=== PATIENT | female | born 1990 | race Caucasian/White ===

== ENCOUNTER → 2017-08-24 | Outpatient (CLI) | payer OTHER ==
[~2017-08-24] MED LIST: BIMA01SOL OD; BRIM1OPD OU; CLON0.5T PO; DIAM500C PO; DORZ2OPD OU; NUVAMIS2 IC; PILO1OPD OD; PROB1CAP12 PO; TIMO0.5S29 OU
[2017-08-24 19:22] LABS: MEAN CORPUSCULAR HEMOGLOBIN 30.4 pg (27.0-33.0); MEAN CORPUSCULAR HGB CONC 32.6 g/dl (32.0-36.5); MEAN CORPUSCULAR VOLUME 93.5 fl (80.0-96.0); PLATELET COUNT, AUTOMATED 205 10^3/uL (150-450); RED CELL DISTRIBUTION WIDTH 13.2 % (11.5-14.5)
[2017-08-24 19:26] LABS: ANION GAP 10 MEQ/L (8-16); BLOOD UREA NITROGEN 8 MG/DL (7-18); CARBON DIOXIDE LEVEL 20 MEQ/L (21-32); CHLORIDE LEVEL 111 MEQ/L (98-107); CREATININE FOR GFR 1.06 MG/DL (0.55-1.02); GLOMERULAR FILTRATION RATE > 60.0 (>60); POTASSIUM SERUM 3.3 MEQ/L (3.5-5.1); SODIUM LEVEL 141 MEQ/L (136-145)
== END ==
LOC: M WUC 15:56
PROVIDERS: ATTEND Ophthalmology
DX: H40.1133 Primary open-angle glaucoma, bilateral, severe stage (principal)

== ENCOUNTER 2017-08-31 07:04 | Day surgery (SDC) | payer OTHER ==
[~2017-08-31] VITALS: Ht 167.6 cm; Wt 58.1 kg
[~2017-08-31 07:04] MED LIST changes: +ACETAMINOPHEN 325 MG TAB PO PRN; +BSS with VANC/TOB/EPI for EYE CASES IR ONE; +LIDOCAINE 2% W/EPIN INJ 20ML **PRES FREE As Ordered ONE; +LIDOCAINE 3.5 % 1ML OPHTH TOPICAL GEL OU ONE; +OFLOXACIN 0.3 % (OCUFLOX) OPTH SOL 5ML XX ONE; +POVIDONE-IODINE 5% OPHTH PREP SOL 30ML As Ordered ONE; +PROPARACAINE 0.5% OPHTH SOL 15ML XX PRN; +TOBRADEX OPHTH OINT 3.5 GM As Ordered ONE
[2017-08-31] MEDS ORDERED: MIDAZOLAM INJ 2 MG/2 ML VIAL (J2250) As Ordered ONE (07:10)
[2017-08-31] MEDS ORDERED: fentaNYL 100 MCG/2 ML INJECTION (J3010) As Ordered ONE (07:13)
[2017-08-31] MEDS ORDERED: mitoMYcin 0.2 MG/VIAL KIT FOR OPHTHALMIC USE (J7315 PER 0.2MG) As Ordered ONE (07:15)
[2017-08-31] MEDS ORDERED: LIDOCAINE 3.5 % 1ML OPHTH TOPICAL GEL As Ordered ONE (07:20)
[2017-08-31 07:25] LABS: CONTROL LINE UCG INT CTR LINE PRESENT
[2017-08-31] MEDS ORDERED: AcetaZOLAMIDE 500 MG ER CAP PO ONE (07:30)
[2017-08-31] MEDS ORDERED: LR 1,000 ML IV ONE (07:30)
[2017-08-31] MEDS ORDERED: TRIMETHOBENZAMIDE 300 MG CAP PO PRN (07:30)
[2017-08-31] MEDS ORDERED: KETOROLAC 0.5% OPHTH SOLN XX ONE (07:30)
[2017-08-31] MEDS ORDERED: HEALON DUET (HEALON 10MG/ML 0.55ML & HEALON ENDOCOAT 30MG/ML 0.85ML) As Ordered ONE (07:59)
[2017-08-31 09:14] VITALS: BP 94/58
--- NOTE | 2017-08-31 10:44 | RO ---
DATE OF PROCEDURE: 08/31/2017 PREOPERATIVE DIAGNOSIS: Glaucoma right eye. POSTOPERATIVE DIAGNOSIS: Glaucoma right eye. PROCEDURE: Placement of the Ex-PRESS shunt with mitomycin in the right eye. SURGEON: Girish Krishna MD VP STRATEGY: None. ANESTHESIA: COMPLICATIONS: None. PROCEDURE IN DETAIL: The patient was brought to the operating room and laid in supine position. The eye was prepped and draped in a sterile fashion for ophthalmic surgery and a lid speculum was placed. A #7-0 Vicryl suture was used to rotate the eye inferiorly. Subconjunctival injection of 2% lidocaine with 1:100,000 epinephrine was then given in the superior subconjunctival space. This was followed by limbal based conjunctival peritomy, done over 4 o'clock hours and subconjunctival dissection carried out towards the limbus. Following hemostasis, mitomycin 0.2 mg/mL was placed on the scleral bed for 3 minutes followed by copious irrigation with balance salt solution (BSS). A rectangular 4 mm x 3 mm scleral flap, which was limbal based then created all the way to the blue line. The anterior chamber was entered with a 27 gauge needle underneath the flap. The lid was retracted and the ExPRESS shunt was placed through the same flap. The flap was draped over by the scleral flap and conjunctiva closed using #10-0 Vicryl sutures. No leaks were noted. At the end of the case, the #7-0 Vicryl suture was removed, TobraDex ointment was applied and patient was returned to the recovery room in stable condition.
== END 2017-08-31 09:50 | disposition home or self-care (01) ==
LOC: M SDC 07:04
PROVIDERS: ATTEND Ophthalmology
DX: H40.9 Unspecified glaucoma (principal); R51 Headache; E87.6 Hypokalemia; F41.9 Anxiety disorder, unspecified; F32.9 Major depressive disorder, single episode, unspecified; Z88.8 Allergy status to other drugs, medicaments and biological substances; Z79.899 Other long term (current) drug therapy; Z79.3 Long term (current) use of hormonal contraceptives; Z72.0 Tobacco use
CPT/HCPCS: 66183; 84703; C1783

== ENCOUNTER → 2017-09-07 | Day surgery (SDC) | payer OTHER ==
[~2017-09-07] VITALS: Ht 167.6 cm; Wt 60.3 kg
[~2017-09-07] MED LIST changes: -ACETAMINOPHEN 325 MG TAB PO PRN; -BSS with VANC/TOB/EPI for EYE CASES IR ONE; +HEALON DUET (HEALON 10MG/ML 0.55ML & HEALON ENDOCOAT 30MG/ML 0.85ML) As Ordered ONE; +LIDOCAINE 1% SDV 5 ML VIAL As Ordered ONE; -LIDOCAINE 2% W/EPIN INJ 20ML **PRES FREE As Ordered ONE; +MIDAZOLAM INJ 2 MG/2 ML VIAL (J2250) As Ordered ONE; +OFLOXACIN 0.3 % (OCUFLOX) OPTH SOL 5ML OS ONE; -OFLOXACIN 0.3 % (OCUFLOX) OPTH SOL 5ML XX ONE; +ONDANSETRON 4MG/2ML VIAL (J2405) IV PRN; +PRED20TA PO; -PROPARACAINE 0.5% OPHTH SOL 15ML XX PRN; +TOBR0.3S37 OP; +fentaNYL 100 MCG/2 ML INJECTION (J3010) As Ordered ONE
[2017-09-07 15:26] VITALS: BP 108/65
--- NOTE | 2017-09-09 17:59 | RO ---
DATE OF PROCEDURE: 09/07/2017 PREPROCEDURE DIAGNOSIS: Hypotony right eye. POSTPROCEDURE DIAGNOSIS: Hypotony right eye. PROCEDURE: Revision of Ex-PRESS shunt right eye. SURGEON: Dr. Radha Bradley EPIC CUPID SPECIALISTS: ANESTHESIA: Topical with sedation. DESCRIPTION OF PROCEDURE: Patient prepped and draped in the usual fashion. A lid speculum was placed between the lids, as the patient was directed to look downward, the #8-0 Vicryl suture in the conjunctiva was removed and the conjunctiva reflected down. The patient had a little bit of problem cooperating and a bridle suture was placed to retract the eye downward. There were no sutures in the scleral flap, so one #10-0 nylon suture was placed in each corner of the rectangular flap and one at the top in the center, so three #10-0 nylon sutures in total were used to tack down the flap. The flap was slightly retracted and was adherent to the conjunctivae but was easily freed. The conjunctiva was then closed using a running #8-0 Vicryl suture. The anterior chamber was reformed with balanced salt solution. TobraDex ointment, a patch shield was placed. The patient tolerated the procedure well, in recovery room in stable condition. Edited 09/09/2017 [facility]
== END | disposition home or self-care (01) ==
LOC: M SDC 11:28
PROVIDERS: ATTEND Ophthalmology
DX: H44.4 Hypotony of eye (principal); F17.210 Nicotine dependence, cigarettes, uncomplicated; Z79.899 Other long term (current) drug therapy

== ENCOUNTER → 2019-01-12 | Outpatient (REF) | payer OTHER ==
[~2019-01-12] MED LIST changes: -CLON0.5T PO; +CLON0.5T8 PO; -HEALON DUET (HEALON 10MG/ML 0.55ML & HEALON ENDOCOAT 30MG/ML 0.85ML) As Ordered ONE; -LIDOCAINE 1% SDV 5 ML VIAL As Ordered ONE; -LIDOCAINE 3.5 % 1ML OPHTH TOPICAL GEL OU ONE; -MIDAZOLAM INJ 2 MG/2 ML VIAL (J2250) As Ordered ONE; -OFLOXACIN 0.3 % (OCUFLOX) OPTH SOL 5ML OS ONE; -ONDANSETRON 4MG/2ML VIAL (J2405) IV PRN; -POVIDONE-IODINE 5% OPHTH PREP SOL 30ML As Ordered ONE; -TOBRADEX OPHTH OINT 3.5 GM As Ordered ONE; -fentaNYL 100 MCG/2 ML INJECTION (J3010) As Ordered ONE
[2019-01-12 13:44] LABS: INFLUENZA A AMPLIFICATION NEGATIVE (NEGATIVE); INFLUENZA B AMPLIFICATION NEGATIVE (NEGATIVE)
== END ==
LOC: M LAB REF 12:42
PROVIDERS: ATTEND Physician Assistant
DX: J11.1 Influenza due to unidentified influenza virus with other respiratory manifestations (principal)

== ENCOUNTER 2019-03-07 06:14 | Day surgery (SDC) | payer OTHER ==
[~2019-03-07] VITALS: Ht 167.6 cm; Wt 68.2 kg
[~2019-03-07 06:14] MED LIST changes: +ABIL1TAB11 PO; +ACET50CA PO; +ACETAMINOPHEN 325 MG TAB PO PRN; +BIMA01SOL OU; +BUPR15TA PO; +PROZ20CA11 PO; +TIMO0.5S39 OP; +TRUS1SOL OU
[2019-03-07] MEDS ORDERED: BALANCED SALT IRRIGATION SOLUTION 500ML BAG (FOR OR EYE MACHINE) As Ordered ONE (06:43)
[2019-03-07] MEDS ORDERED: POVIDONE-IODINE 5% OPHTH PREP SOL 30ML As Ordered ONE (06:43)
[2019-03-07] MEDS ORDERED: LIDOCAINE 1% SDV 5 ML VIAL As Ordered ONE (06:43)
[2019-03-07] MEDS ORDERED: HEALON DUET PRO(HEALON 10MG/ML 0.55ML & HEALON ENDOCOAT 30MG/ML 0.85ML) As Ordered ONE ×2 (06:44→07:11)
[2019-03-07] MEDS ORDERED: CEFUROXIME 1MG/0.1ML INTRACAMERAL INJ As Ordered ONE (06:44)
[2019-03-07 06:53] LABS: URINE PREG TEST NEGATIVE (NEGATIVE)
[2019-03-07] MEDS ORDERED: LIDOCAINE 3.5 % 1ML OPHTH TOPICAL GEL OU ONE (07:00)
[2019-03-07] MEDS ORDERED: PROPARACAINE 0.5% OPHTH SOL 15ML OS PRN (07:01)
[2019-03-07] MEDS ORDERED: mitoMYcin 0.2 MG/VIAL KIT FOR OPHTHALMIC USE (J7315 PER 0.2MG) As Ordered ONE (07:12)
[2019-03-07] MEDS ORDERED: MIDAZOLAM INJ 2 MG/2 ML VIAL (J2250) As Ordered ONE (07:15)
[2019-03-07] MEDS ORDERED: fentaNYL 100 MCG/2 ML INJECTION (J3010) As Ordered ONE (07:15)
[2019-03-07 08:25] VITALS: BP 103/74
[2019-03-07] MEDS ORDERED: TRIMETHOBENZAMIDE 300 MG CAP PO PRN (09:45)
[2019-03-07] MEDS ORDERED: KETOROLAC 0.5% OPHTH SOLN OS ONE (09:45)
--- NOTE | 2019-03-08 10:52 | RO ---
DATE OF PROCEDURE: 03/07/2019 PREOPERATIVE DIAGNOSIS: Open angle glaucoma, left eye. POSTOPERATIVE DIAGNOSIS: Open angle glaucoma, left eye. PROCEDURE PERFORMED: Implantation of Xen gel stent, left eye. SURGEON: Radha Bradley MD RENAL MEDICINE SPECIALIST: ANESTHESIA: Topical with sedation. DESCRIPTION OF PROCEDURE: The patient was prepped and draped in the usual fashion. A lid speculum was placed between the lids. The eye was examined. There was a previously EXPRESS shunt superiorly. The patient was instructed to look downward. 0.2% mitomycin C 0.1 mL was injected approximately 7 mm posterior to the limbus. A cotton tip was used to push the mitomycin around. A stab incision was made into the anterior chamber at approximately the 9 o'clock position. The eye was then grasped and a 2.4 mm keratome was used to make a clear corneal temporal incision at approximately the 5 o'clock position. The 1% nonpreserved lidocaine was instilled through the incision, through the sideport, and then viscoelastic was instilled through the sideport. Previously the conjunctiva was marked approximately 3 mm posterior to the limbus. The fixation device was placed through the sideport incision to hold the eye and then the Xen was introduced through the incision. The needle was placed just anterior to the trabecular meshwork until the needle was seen at approximately 3 mm position underneath the conjunctiva. The Xen implant was then released from its inserted and junior accountant bookkeeper removed. The implant was a little bit to anterior to the anterior chamber, and it was attempted to pull it back through the conjunctiva, however each time the pushed farther into the anterior chamber. Forceps was used to remove the Xen implant, a fresh implant was gotten and again through the pre-made incision the junior accountant bookkeeper was placed and the needle was visualized approximately 3 mm posterior to the limbus through the conjunctiva. This time the Xen implant was implanted and was in excellent position. The implant was grasped through the conjunctiva and swept back and forth. The Healon was washed out using balance salt solution (BSS). performed immediately after washing out the Healon. The wound was hydrated and cefuroxime was instilled. A shield was placed. The patient tolerated the procedure well and went to the recovery room in stable condition.
== END 2019-03-07 08:29 | disposition home or self-care (01) ==
LOC: M SDC 06:14
PROVIDERS: ATTEND Ophthalmology
DX: H40.1120 Primary open-angle glaucoma, left eye, stage unspecified (principal); F41.9 Anxiety disorder, unspecified; F32.9 Major depressive disorder, single episode, unspecified; Z79.899 Other long term (current) drug therapy
CPT/HCPCS: 66183; 84703; C1783; J2250; J3010; J7315

== ENCOUNTER 2019-12-05 01:22 | Emergency (ER) | payer OTHER ==
[~2019-12-05] VITALS: Ht 167.6 cm; Wt 72.7 kg
[~2019-12-05 01:22] MED LIST changes: -ACETAMINOPHEN 325 MG TAB PO PRN; +CLON0.5T2 PO; -CLON0.5T8 PO
[2019-12-05] MEDS ORDERED: CHARCOAL ACTIVATED LIQUID 25 GM/120 ML BTL PO ONE (02:15)
[2019-12-05] MEDS ORDERED: NS 1,000 ML IV ONE ×2 (02:15→04:45)
[2019-12-05 02:28] LABS: BASO # 0.1 10^3/uL (0.0-0.2); BASO % 0.6 % (0.0-1.0); EOS # 0.1 10^3/uL (0.0-0.5); EOS % 1.3 % (0.0-3.0); LYMPH # 3.6 10^3/uL (1.5-5.0); LYMPH % 34.2 % (24.0-44.0); MEAN CORPUSCULAR HEMOGLOBIN 30.5 pg (27.0-33.0); MEAN CORPUSCULAR HGB CONC 32.7 g/dl (32.0-36.5); MEAN CORPUSCULAR VOLUME 93.5 fl (80.0-96.0); MONO # 0.7 10^3/uL (0.0-0.8); MONO % 6.6 % (0.0-5.0); NEUTROPHILS % 57.1 % (36.0-66.0); PLATELET COUNT, AUTOMATED 251 10^3/uL (150-450); RED BLOOD COUNT 5.24 10^6/uL (4.00-5.40); WHITE BLOOD COUNT 10.6 10^3/uL (4.0-10.0)
[2019-12-05 02:43] LABS: OSMOLALITY SERUM 354 MOSM/KG (275-295)
[2019-12-05 02:44] LABS: HCG, SERUM QUALITATIVE NEGATIVE (NEGATIVE)
[2019-12-05 03:08] LABS: ACETAMINOPHEN LEVEL < 2.0 UG/ML (10.0-30.0); ALBUMIN 4.3 GM/DL (3.2-5.2); ALT/SGPT 20 U/L (12-78); BILIRUBIN,DIRECT < 0.1 MG/DL (0.0-0.2); BILIRUBIN,TOTAL 0.2 MG/DL (0.2-1.0); BLOOD UREA NITROGEN 6 MG/DL (7-18); CALCIUM LEVEL 8.5 MG/DL (8.5-10.1); CARBON DIOXIDE LEVEL 27 MEQ/L (21-32); CHLORIDE LEVEL 114 MEQ/L (98-107); CPK CREATINE PHOSPHOKINASE 81 U/L (26-192); GLOMERULAR FILTRATION RATE > 60.0 (>60); GLUCOSE, FASTING 95 MG/DL (70-100); POTASSIUM SERUM 4.2 MEQ/L (3.5-5.1); SALICYLATE LEVEL < 1.7 MG/DL (5.0-30.0); SODIUM LEVEL 148 MEQ/L (136-145)
[2019-12-05 06:38] LABS: AMPHETAMINES LEVEL URINE NEGATIVE (NEGATIVE); BARBITURATES URINE NEGATIVE (NEGATIVE); BENZODIAZEPINES URINE NEGATIVE (NEGATIVE); CANNABINOIDS URINE NEGATIVE (NEGATIVE); COCAINE METABOLITE URINE NEGATIVE (NEGATIVE); METHADONE URINE NEGATIVE (NEGATIVE); OPIATES URINE NEGATIVE (NEGATIVE); PHENCYCLIDINE URINE NEGATIVE (NEGATIVE)
[2019-12-05 07:13] VITALS: BP 104/54
--- NOTE | 2019-12-05 12:20 | ECGEPIP ---
[facility] - ED Test Date: 2019-12-05 Pat Name: OMAYRA GREEN Department: Room: - Gender: Female Flatbed Driver: : [id number] Requested By: REMINGTON Maria Order Number: [id number] Reading MD: Abdullahi Hardy Measurements Intervals [place] Rate: 87 P: 58 NC: 141 QRS: 81 QRSD: 81 T: 44 QT: 374 QTc: 451 Interpretive Statements SINUS RHYTHM INCOMPLETE RIGHT BUNDLE BRANCH BLOCK NONSPECIFIC T-WAVE ABNORMALITY NO PRIORS FOR COMPARISON Electronically Signed on 12-05-2019 12:20:20 EDT by Abdullahi Hardy
== END 2019-12-05 08:49 | disposition home or self-care (01) ==
LOC: M ED 01:22
DX: F10.229 Alcohol dependence with intoxication, unspecified (principal); Y90.1 Blood alcohol level of 20-39 mg/100 ml; F33.9 Major depressive disorder, recurrent, unspecified; F41.9 Anxiety disorder, unspecified; F90.9 Attention-deficit hyperactivity disorder, unspecified type; Z79.899 Other long term (current) drug therapy; F17.210 Nicotine dependence, cigarettes, uncomplicated
CPT/HCPCS: 80048; 80076; 80307; 82550; 83930; 84443; 84703; 85025; 93005; 93041; 94760; 96360; 96361; 99285; G0480

== ENCOUNTER → 2020-02-21 | Outpatient (CLI) | payer OTHER ==
--- NOTE | 2020-02-21 11:10 | REP ---
MRI LEFT KNEE: TECHNIQUE: Axial proton density fat saturation, sagittal proton density T2 STIR, water excitation, coronal proton density, proton density fat saturation. The menisci show no evidence of a tear. The cruciate and collateral ligaments are intact. The extensor mechanism is intact. The medial and lateral patellar retinacula are intact. No osteochondral defect is seen. However, there is a nondisplaced horizontal fracture of the proximal tibia predominantly in the medial tibial plateau. There is associated marrow edema. There is adjacent soft tissue edema. There is a small joint effusion. There is no popliteal cyst. IMPRESSION: No meniscal tear. Cruciate and collateral ligaments intact. Nondisplaced fracture proximal tibia, the epicenter in the medial tibial plateau. Small joint effusion. Electronically Signed by Beto Scott MD 02/21/2020 07:42 P
== END ==
LOC: M RAD 07:13
PROVIDERS: ATTEND Orthopaedic Surgery Sports Medicine
DX: S82.145A Nondisplaced bicondylar fracture of left tibia, initial encounter for closed fracture (principal); M25.461 Effusion, right knee; X58.XXXA Exposure to other specified factors, initial encounter; Y92.9 Unspecified place or not applicable

== ENCOUNTER → 2020-03-28 | Outpatient (CLI) | payer OTHER ==
[~2020-03-28] MED LIST changes: +ADDE20CA3 PO
== END ==
LOC: M LABSMTC 10:06
PROVIDERS: ATTEND Anesthesiology
DX: Z01.818 Encounter for other preprocedural examination (principal); Z11.59 Encounter for screening for other viral diseases
CPT/HCPCS: C9803; U0003

== ENCOUNTER 2020-03-31 08:02 | Day surgery (SDC) | payer OTHER ==
[~2020-03-31] VITALS: Ht 170.2 cm; Wt 73.5 kg
[~2020-03-31 08:02] MED LIST changes: +ACETYLCHOLINE OPHTH SOLN 1% 2ML (MIOCHOL-E) As Ordered ONE; +BALANCED SALT IRRIGATION SOLUTION 500ML BAG (FOR OR EYE MACHINE) As Ordered ONE; +CEFUROXIME 1MG/0.1ML INTRACAMERAL INJ As Ordered ONE; +LIDOCAINE 1% SDV 5ML VIAL As Ordered ONE; +LIDOCAINE 3.5 % 1ML OPHTH TOPICAL GEL OU ONE; +POVIDONE-IODINE 5% OPHTH PREP SOL 30ML As Ordered ONE; +mitoMYcin 0.2 MG/VIAL KIT FOR OPHTHALMIC USE (J7315 PER 0.2MG) As Ordered ONE
[2020-03-31] MEDS ORDERED: ONDANSETRON 4MG/2ML VIAL As Ordered ONE (09:28)
[2020-03-31] MEDS ORDERED: fentaNYL 100 MCG/2 ML INJECTION (J3010) As Ordered ONE (09:29)
[2020-03-31] MEDS ORDERED: MIDAZOLAM INJ 2MG/2ML VIAL (J2250 PER 1MG) As Ordered ONE (09:29)
[2020-03-31] MEDS ORDERED: HEALON DUET PRO(HEALON 10MG/ML 0.55ML & HEALON ENDOCOAT 30MG/ML 0.85ML) As Ordered ONE (09:41)
[2020-03-31 10:30] VITALS: BP 120/79
--- NOTE | 2020-04-08 10:15 | RO ---
DATE OF PROCEDURE: 03/31/2020 PREOPERATIVE DIAGNOSIS: Open-angle glaucoma right eye. POSTOPERATIVE DIAGNOSIS: Open-angle glaucoma right eye. PROCEDURE PERFORMED: Insertion of Xen implant. ANESTHESIA: Topical with sedation. SURGEON: Radha Bradley MD BIAS MACHINE OPERATOR HELPER: DESCRIPTION OF PROCEDURE: The patient was prepped and draped in the usual fashion. A lid speculum was placed between the lids. The eye was fixated. Stab incision made to the anterior chamber at approximately the 7 o'clock position. 1% nonpreserved lidocaine was instilled; then viscoelastic was instilled. The eye was refixated, and another incision was made with a 1.8 mm keratome approximately at the 11 o'clock position. Mitomycin was injected into the superior nasal quadrant, and then the fixation device was placed through one incision, then through the other, and the Xen was placed into the superior nasal quadrant with no difficulty. The fixation device was removed, and the eye was irrigated with balanced salt solution (BSS) to flush out the washout, the remaining viscoelastic. The wound was hydrated, and cefuroxime was instilled. The patient tolerated the procedure well and went to the recovery room in stable condition.
== END 2020-03-31 10:35 | disposition home or self-care (01) ==
LOC: M SDC 08:02
PROVIDERS: ATTEND Ophthalmology
DX: H40.811 Glaucoma with increased episcleral venous pressure, right eye (principal); F90.9 Attention-deficit hyperactivity disorder, unspecified type; F41.9 Anxiety disorder, unspecified; F32.9 Major depressive disorder, single episode, unspecified; Z79.899 Other long term (current) drug therapy; F17.290 Nicotine dependence, other tobacco product, uncomplicated
CPT/HCPCS: 66183; 81025; C1783; J2250; J2405; J3010; J7315